=== PATIENT | female | born 1965 | race Caucasian/White ===

== ENCOUNTER 2016-09-11 13:16 | Emergency (ER) | payer OTHER ==
[2016-09-11] MEDS ORDERED: HYDROcodone/ACETAMIN 5-325 MG* 1 TAB PO ONE (15:50)
--- NOTE | 2016-09-11 15:52 | RAD ---
INDICATION: Right knee injury. COMPARISON: Comparison is made with a prior study from October 19, 2015. TECHNIQUE: 4 views of the right knee were obtained. FINDINGS: There is mild lateral subluxation of the patella which is unchanged. No fracture or joint effusion is seen. There is moderate to severe osteoarthritic change in the patellofemoral compartment. IMPRESSION: NO EVIDENCE FOR FRACTURE.
--- NOTE | 2016-09-11 16:11 | UC ---
Knee Pain HPI - HPI Summary HPI Summary: worsening right knee pain---has had similar in the past with conservative treatment - History of Current Complaint Chief Complaint: UCLowerExtremity Stated Complaint: KNEE PAIN Time Seen by Provider: 09/11/16 14:15 Hx Obtained From: Patient ?: No Onset/Duration: Gradual Onset, Lasting Weeks, Worse Since - past 2 days Severity Initially: Severe Severity Currently: Severe Pain Intensity: 10 Pain Scale Used: 0-10 Numeric Character: Aching, Throbbing Aggravating Factor(s): Movement, Weight Bearing Alleviating Factor(s): Rest Associated Signs And Symptoms: Positive: Swelling Able to Bear Weight: Yes - with pain-- - Allergies/Home Medications Allergies/Adverse Reactions: Allergies Allergy/AdvReac Type Severity Reaction Status Date / Time Codeine AdvReac Severe Shakes Verified 10/28/15 10:37 PMH/Surg Hx/FS Hx/Imm Hx Previously Healthy: No Endocrine History Of: Denies: Diabetes, Thyroid Disease Cardiovascular History Of: Denies: Cardiac Disorders, Hypertension, Pacemaker/ICD, Myocardial Infarction , Congestive Heart Failure, Deep Vein Thrombosis Respiratory History Of: Reports: COPD, Asthma - W/INHALER, Pneumonia GI/ History Of: Denies: Ulcer, Renal Disease Neurological History Of: Reports: Seizures - past couple months, has not seen an MD about it yet, at least once per week Psychological History Of: Reports: Anxiety, Depression Denies: Bipolar Disorder, Schizophrenia - Surgical History Surgical History: Yes Surgery Procedure, Year, and Place: hysterectomy; appendectomy; L knee-IN 30'S ARTHROSCOPY IN [place]. BLADDER SLING. angioplasty - NO STENTS - Family History Known Family History: Positive: Unknown - Social History Occupation: Employed Full-time Lives: With Family Alcohol Use: None Substance Use Type: None Smoking Status (MU): Heavy Every Day Tobacco Smoker Type: Cigarettes Amount Used/How Often: 1/4 ppd Length of Time of Smoking/Using Tobacco: 20 yrs Have You Smoked in the Last Year: Yes Household Exposure Type: Cigarettes Cessation Counseling: Counseled 3+Min - 10 Min - Immunization History Most Recent Influenza Vaccination: fall 2012 Most Recent Tetanus Shot: july 2013 Most Recent Pneumonia Vaccination: 2013 Review of Systems Constitutional: Negative Skin: Negative Eyes: Negative ENT: Negative Respiratory: Negative Cardiovascular: Negative Gastrointestinal: Negative Genitourinary: Negative Motor: Decreased ROM - right knee Neurovascular: Negative Musculoskeletal: Arthralgia - right knee Neurological: Negative Psychological: Negative All Other Systems Reviewed And Are Negative: Yes Physical Exam Triage Information Reviewed: Yes Appearance: Well-Appearing, Pain Distress, Obese Vital Signs: Initial Vital Signs Temp 97.7 F 09/11/16 14:42 Pulse 60 09/11/16 14:42 Resp 18 09/11/16 14:42 BP 133/66 09/11/16 14:42 Pulse Ox 98 09/11/16 14:42 Vital Signs Reviewed: Yes Eye Exam: Normal Eyes: Positive: Conjunctiva Clear ENT Exam: Normal ENT: Positive: Normal ENT inspection, Hearing grossly normal, TMs normal. Negative: Nasal congestion, Nasal drainage, Trismus, Muffled/hoarse voice Dental Exam: Normal Neck exam: Normal Neck: Positive: Supple, Nontender, No Lymphadenopathy Respiratory Exam: Normal Respiratory: Positive: Chest non-tender, Lungs clear, Normal breath sounds, No respiratory distress, No accessory muscle use Cardiovascular Exam: Normal Cardiovascular: Positive: RRR, No Murmur, Pulses Normal, Brisk Capillary Refill Musculoskeletal Exam: Other Musculoskeletal: Positive: Strength Limited @ - right knee, ROM Limited @ - knee (R), Edema @ - R knee Neurological Exam: Normal Neurological: Positive: Alert, Muscle Tone Normal Psychological Exam: Normal Skin Exam: Normal Diagnostics - Radiology No standard instances Xray Interpretation: Positive (See Comments) - sublex Patella, moderate to sever degenerative changes Radiology Interpretation Completed By: Radiologist Knee Pain Course/Dx - Course Course Of Treatment: knee immoblizer, pain control, work limits, follow with ortho - Differential Dx/Diagnosis Differential Diagnosis/HQI/PQRI: Contusion, Dislocation, Internal Derangement Of Knee, Sprain, Strain Provider Diagnoses: Acute on Chronic right knee pain, nicotine dependent Discharge - Discharge Plan Condition: Stable Disposition: HOME Prescriptions: HYDROcodone/ACETAMIN 5-325 MG* [Empire 5-325 TAB*] 1 - 2 tab PO Q6H PRN #24 tab MDD 8 PRN Reason: Pain Meloxicam [Mobic] 7.5 mg PO BID #60 tab Patient Education Materials: Knee Immobilizer (ED), Knee Pain (ED) Forms: *Work Release Referrals: No Primary Care Phys,NOPCP [Primary Care Provider] - Poncho Haines MD [Medical Doctor] - 4 Days
[2016-09-11 16:23] VITALS: BP 167/96
== END 2016-09-11 16:15 | disposition home or self-care (01) ==
LOC: UCEAST 13:16
DX: M25.561 Pain in right knee (principal); G89.29 Other chronic pain; J45.909 Unspecified asthma, uncomplicated; R56.9 Unspecified convulsions; F41.9 Anxiety disorder, unspecified; F32.9 Major depressive disorder, single episode, unspecified; F17.210 Nicotine dependence, cigarettes, uncomplicated; Z88.5 Allergy status to narcotic agent
CPT/HCPCS: 99213; G0463

== ENCOUNTER 2017-02-11 14:51 | Emergency (ER) | payer OTHER ==
[2017-02-11] MEDS ORDERED: NS 0.9% 1000 ML* 1,000 ML IV ONE (16:00)
[2017-02-11] MEDS ORDERED: Ondansetron INJ* 2 MG/ML VIAL IV ONE ×2 (16:00→16:32)
[2017-02-11] MEDS ORDERED: HYDROmorphone INJ* 1 MG/ML CARPUJECT SYRINGE IV ONE ×2 (16:00→16:32)
[2017-02-11] MEDS ORDERED: Ondansetron INJ* 2 MG/ML VIAL ONE (16:02)
[2017-02-11] MEDS ORDERED: HYDROmorphone INJ* 1 MG/ML CARPUJECT SYRINGE ONE (16:02)
[2017-02-11 16:19] LABS: Hematocrit 41 % (35-47); Hemoglobin 13.9 g/dl (12.0-16.0); Mean Corpuscular HGB Conc 34 g/dl (31-36); Mean Corpuscular Hemoglobin 31 pg (27-31); Mean Corpuscular Volume 93 fL (80-97); Mean Platelet Volume 8 um3 (7.4-10.4); Red Blood Count 4.43 10^6/ul (4.0-5.4); Red Cell Distribution Width 14 % (10.5-15); White Blood Count 17.7 10^3/ul (3.5-10.8)
--- NOTE | 2017-02-11 16:25 | RAD ---
INDICATION: LEFT lower quadrant abdominal pain; chills; possible fever. Post appendectomy, hysterectomy, urinary bladder sling. COMPARISON: December 26, 2010 CT TECHNIQUE: Multidetector CT images were obtained from the lung bases to the ischial tuberosities. Evaluation of the viscera is limited without IV contrast. Multiplanar reformation. REPORT: Unremarkable visualized inferior thorax. Upper normal size liver with diffuse decreased density consistent with fatty infiltration with focal sparing at the gallbladder fossa. No focal hepatic lesion or biliary dilatation. No CT abnormality of the gallbladder, pancreas, spleen. Negative for CT abnormality of the upper GI or small bowel. The appendix is not visualized consistent with surgical history. Unremarkable colon. Negative for ascites or free air. Negative for significant hernias. Normal RIGHT adrenal gland. Unchanged 2.5 cm hypodense LEFT adrenal nodule consistent with a benign lipid rich adenoma. 2.1 cm exophytic cortical lesion at the upper pole of the LEFT kidney increased from 1.2 cm previously is denser than typical for a simple cyst. Negative for nephrolithiasis or hydronephrosis. Unremarkable nondilated ureters and largely decompressed urinary bladder limiting assessment. Post hysterectomy. Adnexal region surgical clips. No suspicious adnexal region lesions evident. Negative for lymphadenopathy. Normal diameter abdominal aorta and common iliac arteries. Physiologic distention of the IVC. Chronic appearing malalignment at the sacrococcygeal and S1-S2 junctions. No suspicious focal osseous lesions evident. IMPRESSION: 1. Fatty infiltration of the liver. 2. No pathologic process of the alimentary tract evident. 3. Negative for obstructive uropathy. 4. Indeterminate 2.1 cm exophytic cortical lesion upper pole LEFT kidney. Nonemergent follow-up renal ultrasound suggested to differentiate between a hyperdense cyst and a solid lesion. 5. Benign lipid rich LEFT adrenal adenoma.
[2017-02-11 16:34] LABS: Albumin 4.3 g/dL (3.2-5.2); BUN/Creatinine Ratio 13.6 (8-20); C Reactive Protein 10.38 mg/L (< 5.00); Calcium 9.3 mg/dL (8.6-10.3); EGFR African American 121.4 (>60); EGFR Non-African American 94.4 (>60); Globulin 3.3 g/dL (2-4); Potassium 3.7 mmol/L (3.5-5.0); Total Bilirubin 0.4 mg/dL (0.2-1.0); Total Protein 7.6 g/dL (6.4-8.9)
[2017-02-11 19:43] LABS: Urine Bilirubin Negative (Negative); Urine Glucose Negative (Negative); Urine Nitrite Negative (Negative)
[2017-02-11] MEDS ORDERED: oxyCODONE/Acetamin 5/325 MG* TAB PO ONE (20:31)
[2017-02-11 21:00] VITALS: BP 147/69
--- NOTE | 2017-02-11 22:09 | ED ---
Karan Diallo Alfonso, scribed for Jarek Rapp MD on 02/11/17 at 1546 . Abdominal Pain/Female - HPI Summary HPI Summary: This patient is a 51 year old F presenting to [facility] with a chief complaint of LLQ abdominal pain since a few months ago, worse and constant since a few days ago. The pain began as cramping and is now sharp. The patient rates the pain 9/ 10 in severity. Symptoms aggravated by sitting. Symptoms alleviated by nothing. Patient reports fever, and chills. Patient denies bowel symptoms, and loss of appetite. - History of Current Complaint Chief Complaint: EDAbdPain Stated Complaint: LT LOWER ABD PAIN Time Seen by Provider: 02/11/17 15:30 Hx Obtained From: Patient Onset/Duration: Gradual Onset, Worse Since - a few days ago, Other - Lasting months Timing: Constant Severity Currently: Severe Pain Intensity: 9 Pain Scale Used: 0-10 Numeric Location: Discrete At: LLQ Radiates to: LLQ Character: Sharp, Cramping Aggravating Factor(s): Other: - Sitting Alleviating Factor(s): Nothing Associated Signs and Symptoms: Positive: Other: - fever, and chills. Patient denies bowel symptoms, and loss of appetite. Allergies/Adverse Reactions: Allergies Allergy/AdvReac Type Severity Reaction Status Date / Time Codeine AdvReac Severe Shakes Verified 09/16/16 11:01 PMH/Surg Hx/FS Hx/Imm Hx Endocrine/Hematology History: Denies: Hx Diabetes, Hx Thyroid Disease, Hx Anemia, Hx Unexplained Bleeding Cardiovascular History: Reports: Hx Angina, Hx Angioplasty, Hx Syncope Denies: Hx Aneurysm, Hx Auto Implanted Cardiovert Defib, Hx Cardiac Arrest, Hx Cardiomegaly, Hx Congenital Heart Disease, Hx Congestive Heart Failure, Hx Coronary Artery Disease, Hx Deep Vein Thrombosis, Hx Embolism, Hx Hypercholesterolemia, Hx Hypotension, Hx Hypertension, Hx Myocardial Infarction , Hx Pacemaker/ICD, Hx Peripheral Vascular Disease, Hx Rheumatic Fever, Hx Valvular Heart Disease, Other Cardiovascular Problems/Disorders Respiratory History: Reports: Hx Asthma - W/INHALER, Hx Chronic Obstructive Pulmonary Disease (COPD), Hx Pneumonia, Hx Seasonal Allergies, Hx Sleep Apnea, Other Respiratory Problems/Disorders - SUDDEN ONSET SOB IN [place] W/ LEFT LOWER LEG SWELLING/BRUSING GI History: Reports: Hx Gastroesophageal Reflux Disease, Hx Irritable Bowel Denies: Hx Ulcer History: Reports: Other Problems/Disorders - Bladder Sling Denies: Hx Renal Disease Musculoskeletal History: Reports: Hx Arthritis, Hx Back Problems, Hx Orthopedic Injury, Hx Osteoporosis Sensory History: Denies: Hx Hearing Aid Neurological History: Reports: Hx Headaches - accompany seizures, Hx Seizures - past couple months, has not seen an MD about it yet, at least once per week Psychiatric History: Reports: Hx Anxiety, Hx Depression Denies: Hx Attention Deficit Hyperactivity Disorder, Hx Eating Disorder, Hx Panic Disorder, Hx Post Traumatic Stress Disorder, Hx Inpatient Treatment, Hx Community Mental Health Tx, Hx Schizophrenia, Hx Bipolar Disorder, Hx Suicide Attempt, Hx of Violent Episodes Against Others, Hx Substance Abuse - Cancer History Cancer Type, Location and Year: SKIN CARCINOMA REMOVED FROM ABDOMIN - Surgical History Surgery Procedure, Year, and Place: hysterectomy; appendectomy; L knee-IN 'S ARTHROSCOPY IN [place]. BLADDER SLING. angioplasty - NO STENTS - Immunization History Date of Tetanus Vaccine: unknown Infectious Disease History: No Infectious Disease History: Denies: Hx Clostridium Difficile, Hx Hepatitis, Hx Human Immunodeficiency Virus (HIV), Hx of Known/Suspected MRSA, Hx Shingles, Hx Tuberculosis, Hx Known/ Suspected VRE, Hx Known/Suspected VRSA, History Other Infectious Disease, Traveled Outside the [place] in Last 30 Days - Family History Known Family History: Positive: Cardiac Disease, Diabetes - Social History Alcohol Use: None Substance Use Type: Reports: None Hx Tobacco Use: Yes Smoking Status (MU): Heavy Every Day Tobacco Smoker Type: Cigarettes Amount Used/How Often: 1/4 ppd Length of Time of Smoking/Using Tobacco: 20 yrs Have You Smoked in the Last Year: Yes Review of Systems Positive: Fever, Chills Positive: Abdominal Pain, Other - Negative bowel symptoms and loss of appetite. All Other Systems Reviewed And Are Negative: Yes Physical Exam Triage Information Reviewed: Yes Vital Signs On Initial Exam: Initial Vitals Temp Pulse Resp BP Pulse Ox 98.9 F 81 20 170/85 96 02/11/17 14:53 02/11/17 14:53 02/11/17 14:53 02/11/17 14:53 02/11/17 14:53 Vital Signs Reviewed: Yes Appearance: Positive: Well-Appearing, Pain Distress - Moderate, Obese Skin: Positive: Warm, Skin Color Reflects Adequate Perfusion, Dry Head/Face: Positive: Normal Head/Face Inspection Eyes: Positive: Normal ENT: Positive: Normal ENT inspection Neck: Positive: Supple, Nontender Respiratory/Lung Sounds: Positive: Clear to Auscultation, Breath Sounds Present Cardiovascular: Positive: RRR Abdomen Description: Positive: Soft, Other: - LLQ tenderness.. Negative: Hernia @ Bowel Sounds: Positive: Present Pelvic Exam: Positive: other - Witnessed by female RN. No bladder prolapse noted. Musculoskeletal: Positive: Normal Neurological: Positive: Normal, Sensory/Motor Intact, Alert, Oriented to Person Place, Time, CN Intact II-III Psychiatric: Positive: Normal, Affect/Mood Appropriate Diagnostics - Vital Signs Vital Signs Temp Pulse Resp BP Pulse Ox 02/11/17 14:53 98.9 F 81 20 170/85 96 - Laboratory Lab Results: Lab Results 02/11/17 02/11/17 02/11/17 Range/Units 15:56 15:56 15:56 WBC 17.7 H (3.5-10.8) 10^3/ul RBC 4.43 (4.0-5.4) 10^6/ul Hgb 13.9 (12.0-16.0) g/dl Hct 41 (35-47) % MCV 93 (80-97) fL MCH 31 (27-31) pg MCHC 34 (31-36) g/dl RDW 14 (10.5-15) % Plt Count 391 (150-450) 10^3/ul MPV 8 (7.4-10.4) um3 Neut % (Auto) 70.3 (38-83) % Lymph % (Auto) 20.5 L (25-47) % Cocke % (Auto) 8.2 (1-9) % Eos % (Auto) 0.2 (0-6) % Baso % (Auto) 0.8 (0-2) % Absolute Neuts (auto) 12.5 H (1.5-7.7) 10^3/ul Absolute Lymphs (auto) 3.6 (1.0-4.8) 10^3/ul Absolute Monos (auto) 1.5 H (0-0.8) 10^3/ul Absolute Eos (auto) 0 (0-0.6) 10^3/ul Absolute Basos (auto) 0.1 (0-0.2) 10^3/ul Absolute Nucleated RBC 0.02 10^3/ul Nucleated RBC % 0.1 Sodium 133 (133-145) mmol/L Potassium 3.7 (3.5-5.0) mmol/L Chloride 103 (101-111) mmol/L Carbon Dioxide 23 (22-32) mmol/L Anion Gap 7 (2-11) mmol/L BUN 9 (6-24) mg/dL Creatinine 0.66 (0.51-0.95) mg/dL Est GFR ( Amer) 121.4 (>60) Est GFR (Non-Af Amer) 94.4 (>60) BUN/Creatinine Ratio 13.6 (8-20) Glucose 100 (70-100) mg/dL Lactic Acid 1.4 (0.5-2.0) mmol/L Calcium 9.3 (8.6-10.3) mg/dL Total Bilirubin 0.40 (0.2-1.0) mg/dL AST 19 (13-39) U/L ALT 24 (7-52) U/L Alkaline Phosphatase 79 (34-104) U/L C-Reactive Protein 10.38 H (< 5.00) mg/L Total Protein 7.6 (6.4-8.9) g/dL Albumin 4.3 (3.2-5.2) g/dL Globulin 3.3 (2-4) g/dL Albumin/Globulin Ratio 1.3 (1-3) Lipase 15 (11.0-82.0) U/L Urine Color Urine Appearance Urine pH (5-9) Ur Specific Sabael (1.010-1.030) Urine Protein (Negative) Urine Ketones (Negative) Urine Blood (Negative) Urine Nitrate (Negative) Urine Bilirubin (Negative) Urine Urobilinogen (Negative) Ur Leukocyte Esterase (Negative) Urine Glucose (Negative) 02/11/17 Range/Units 19:05 WBC (3.5-10.8) 10^3/ul RBC (4.0-5.4) 10^6/ul Hgb (12.0-16.0) g/dl Hct (35-47) % MCV (80-97) fL MCH (27-31) pg MCHC (31-36) g/dl RDW (10.5-15) % Plt Count (150-450) 10^3/ul MPV (7.4-10.4) um3 Neut % (Auto) (38-83) % Lymph % (Auto) (25-47) % Cocke % (Auto) (1-9) % Eos % (Auto) (0-6) % Baso % (Auto) (0-2) % Absolute Neuts (auto) (1.5-7.7) 10^3/ul Absolute Lymphs (auto) (1.0-4.8) 10^3/ul Absolute Monos (auto) (0-0.8) 10^3/ul Absolute Eos (auto) (0-0.6) 10^3/ul Absolute Basos (auto) (0-0.2) 10^3/ul Absolute Nucleated RBC 10^3/ul Nucleated RBC % Sodium (133-145) mmol/L Potassium (3.5-5.0) mmol/L Chloride (101-111) mmol/L Carbon Dioxide (22-32) mmol/L Anion Gap (2-11) mmol/L BUN (6-24) mg/dL Creatinine (0.51-0.95) mg/dL Est GFR ( Amer) (>60) Est GFR (Non-Af Amer) (>60) BUN/Creatinine Ratio (8-20) Glucose (70-100) mg/dL Lactic Acid (0.5-2.0) mmol/L Calcium (8.6-10.3) mg/dL Total Bilirubin (0.2-1.0) mg/dL AST (13-39) U/L ALT (7-52) U/L Alkaline Phosphatase (34-104) U/L C-Reactive Protein (< 5.00) mg/L Total Protein (6.4-8.9) g/dL Albumin (3.2-5.2) g/dL Globulin (2-4) g/dL Albumin/Globulin Ratio (1-3) Lipase (11.0-82.0) U/L Urine Color Yellow Urine Appearance Cloudy Urine pH 5.0 (5-9) Ur Specific Sabael 1.019 (1.010-1.030) Urine Protein Negative (Negative) Urine Ketones Negative (Negative) Urine Blood Negative (Negative) Urine Nitrate Negative (Negative) Urine Bilirubin Negative (Negative) Urine Urobilinogen Negative (Negative) Ur Leukocyte Esterase Negative (Negative) Urine Glucose Negative (Negative) Result Diagrams: 02/11/17 15:56 02/11/17 15:56 Lab Statement: Any lab studies that have been ordered have been reviewed, and results considered in the medical decision making process. - CT A/P CT Interpretation Completed By: Radiologist - 1. Fatty infiltration of the liver. 2. No pathologic process of the alimentary tract evident. 3. Negative for obstructive uropathy. 4. Indeterminate 2.1 cm exophytic cortical lesion upper pole LEFT kidney. Nonemergent follow-up renal ultrasound suggested to differentiate between a hyperdense cyst and a solid lesion. 5. Benign lipid rich LEFT adrenal adenoma. ED physician has reviewed this radiology report and agrees. Abdominal Pain Fem Course/Dx - Course Course Of Treatment: Ms. Acevedo presented with a LLQ pain that she has had for months but has worsened in the past few days. She saw her PMD who may have reduced a bladder prolapse in the office. She had no evidence of bladder prolapse on arrival or hernia but did have LLQ tenderness. Hew WBCs were elevated at [address] showed no acute pathology. She does have some chronic malalignment of her SI joint on that side and that may be causing pain. I will treat her with pain medications and recommend close F/U. - Diagnoses Provider Diagnoses: Abdominal pain Discharge - Discharge Plan Condition: Stable Disposition: HOME Prescriptions: oxyCODONE/Acetamin 5/325 MG* [Percocet 5/325 TAB*] 1 tab PO Q6H PRN #20 tab MDD 4 PRN Reason: Pain Patient Education Materials: Abdominal Pain (ED) Referrals: Timmy HERNANDEZ FLOOR WORKERLizette [Primary Care Provider] - 3 Days Additional Instructions: RETURN TO THE EMERGENCY DEPARTMENT FOR CHANGING OR WORSENING SYMPTOMS. The documentation as recorded by the Karan babin Alfonso accurately reflects the service I personally performed and the decisions made by me, Jarek Rapp MD.
== END 2017-02-11 21:05 | disposition home or self-care (01) ==
LOC: ED 14:51
DX: R10.32 Left lower quadrant pain (principal)
CPT/HCPCS: 36415; 74176; 80053; 81003; 83605; 83690; 85025; 86140; 96374; 96375; 99285; A9270-GY; J1170; J2405

== ENCOUNTER 2017-11-14 09:29 | Emergency (ER) | payer OTHER ==
[2017-11-14] MEDS ORDERED: NS 0.9% 1000 ML* 1,000 ML IV ONE (09:40)
[2017-11-14] MEDS ORDERED: Albuterol/Ipratropium NEB.SOL* Albuterol 2.5 MG/Ipratropium 0.5 MG 3 ML INH ONE (09:41)
[2017-11-14 09:58] LABS: ABS Basophils 0.1 10^3/ul (0-0.2); ABS Eosinophils 0.3 10^3/ul (0-0.6); ABS Lymphocytes 2.6 10^3/ul (1.0-4.8); ABS Neutrophils 10.3 10^3/ul (1.5-7.7); ABS Nucleated RBC 0 10^3/ul; Eosinophil % 2.4 % (0-6); Hematocrit 40 % (35-47); Hemoglobin 13.7 g/dl (12.0-16.0); Lymphocyte % 18.3 % (25-47); Mean Corpuscular HGB Conc 34 g/dl (31-36); Mean Corpuscular Hemoglobin 31 pg (27-31); Mean Corpuscular Volume 90 fL (80-97); Mean Platelet Volume 7.5 um3 (7.4-10.4); Nucleated Red Blood Cells % 0; Platelet Count 398 10^3/ul (150-450); Red Blood Count 4.47 10^6/ul (4.00-5.40); Red Cell Distribution Width 16 % (10.5-15); White Blood Count 14.4 10^3/ul (3.5-10.8)
[2017-11-14 10:10] LABS: INR 0.9 (0.77-1.02)
[2017-11-14 10:24] LABS: EGFR Non-African American 85.1 (>60)
[2017-11-14] MEDS ORDERED: predniSONE TAB* 20 MG PO ONE (11:00)
--- NOTE | 2017-11-14 11:23 | RAD ---
INDICATION: Chest pain, cough. COPD. History of tobacco use. COMPARISON: February 11, 2017 CT abdomen and October 15, 2014 chest radiograph. TECHNIQUE: Dual energy PA and routine lateral views of the chest were obtained. REPORT: Mild prominence of the interstitial markings. Mild patchy rarefaction of upper lung zone interstitial markings. No focal pulmonary lesion, compelling alveolar consolidation, pleural effusion, pneumothorax. The heart, pulmonary vasculature, and mediastinal contours are unremarkable. IMPRESSION: #. No evidence for pulmonary edema. No evidence for acute intrathoracic disease. #. Stigmata of COPD.
[2017-11-14] MEDS ORDERED: Levofloxacin TAB* 250 MG PO ONE (11:44)
--- NOTE | 2017-11-14 11:58 | ED ---
HPI Chest Pain - HPI Summary HPI Summary: This is Bee Krishna, documenting for attending Pb Farrell MD. Pt is a 52 y/o F BIBA to ED for chest pain. She describes the pain as constant and rates it a 6/10 in severity. She woke up this morning not feeling right. Her chest felt heavy like something was sitting on her and she had shoulder pain. Notes SOB, wheezing, swollen ankles. EMS gave her 3 NTG and 1 baby aspirin. Had a normal EKG on walk in. Pt was crying and had a slight tremor from feeling anxious about being in ED. Pt is a smoker and smokes half a pack per day. PMHx of COPD and anxiety. - History of Current Complaint Chief Complaint: EDChestWallPain Time Seen by Provider: 11/14/17 09:31 Hx Obtained From: Patient Onset/Duration: Started Hours Ago Timing: Constant Current Severity: Moderate - 6/10 Pain Intensity: 6 Pain Scale Used: 0-10 Numeric Chest Pain Radiates: Yes Chest Pain Radiates To:: Shoulder Character: Heaviness Associated Signs and Symptoms: Positive: Chest Pain, Shortness of Breath - Allergy/Home Medications Allergies/Adverse Reactions: Allergies Allergy/AdvReac Type Severity Reaction Status Date / Time codeine Allergy Hives Verified 11/14/17 09:32 PMH/Surg Hx/FS Hx/Imm Hx Endocrine/Hematology History: Denies: Hx Diabetes, Hx Thyroid Disease, Hx Anemia, Hx Unexplained Bleeding Cardiovascular History: Reports: Hx Angina, Hx Angioplasty, Hx Syncope Denies: Hx Aneurysm, Hx Auto Implanted Cardiovert Defib, Hx Cardiac Arrest, Hx Cardiomegaly, Hx Congenital Heart Disease, Hx Congestive Heart Failure, Hx Coronary Artery Disease, Hx Deep Vein Thrombosis, Hx Embolism, Hx Hypercholesterolemia, Hx Hypotension, Hx Hypertension, Hx Myocardial Infarction , Hx Pacemaker/ICD, Hx Peripheral Vascular Disease, Hx Rheumatic Fever, Hx Valvular Heart Disease, Other Cardiovascular Problems/Disorders Respiratory History: Reports: Hx Asthma - W/INHALER, Hx Chronic Obstructive Pulmonary Disease (COPD), Hx Pneumonia, Hx Seasonal Allergies, Hx Sleep Apnea, Other Respiratory Problems/Disorders - SUDDEN ONSET SOB IN [place] W/ LEFT LOWER LEG SWELLING/BRUSING GI History: Reports: Hx Gastroesophageal Reflux Disease, Hx Irritable Bowel Denies: Hx Ulcer History: Reports: Other Problems/Disorders - Bladder Sling Denies: Hx Renal Disease Musculoskeletal History: Reports: Hx Arthritis, Hx Back Problems, Hx Orthopedic Injury, Hx Osteoporosis Sensory History: Denies: Hx Hearing Aid Neurological History: Reports: Hx Headaches - accompany seizures, Hx Seizures - past couple months, has not seen an MD about it yet, at least once per week Psychiatric History: Reports: Hx Anxiety, Hx Depression Denies: Hx Attention Deficit Hyperactivity Disorder, Hx Eating Disorder, Hx Panic Disorder, Hx Post Traumatic Stress Disorder, Hx Inpatient Treatment, Hx Community Mental Health Tx, Hx Schizophrenia, Hx Bipolar Disorder, Hx Suicide Attempt, Hx of Violent Episodes Against Others, Hx Substance Abuse - Cancer History Cancer Type, Location and Year: SKIN CARCINOMA REMOVED FROM ABDOMIN - Surgical History Surgery Procedure, Year, and Place: hysterectomy; appendectomy; L knee-IN 'S ARTHROSCOPY IN [place] BLADDER [place]. angioplasty - NO STENTS - Immunization History Date of Tetanus Vaccine: unknown Infectious Disease History: No Infectious Disease History: Denies: Hx Clostridium Difficile, Hx Hepatitis, Hx Human Immunodeficiency Virus (HIV), Hx of Known/Suspected MRSA, Hx Shingles, Hx Tuberculosis, Hx Known/ Suspected VRE, Hx Known/Suspected VRSA, History Other Infectious Disease, Traveled Outside the [place] in Last 30 Days - Family History Known Family History: Positive: Cardiac Disease, Diabetes - Social History Alcohol Use: None Substance Use Type: Reports: None Hx Tobacco Use: Yes Smoking Status (MU): Heavy Every Day Tobacco Smoker Type: Cigarettes Amount Used/How Often: 1/4 ppd Length of Time of Smoking/Using Tobacco: 20 yrs Have You Smoked in the Last Year: Yes Review of Systems Positive: Chest Pain, Other - Swollen Ankles Positive: Shortness Of Breath, Other - Wheezing Positive: Anxious All Other Systems Reviewed And Are Negative: Yes Physical Exam - Summary Physical Exam Summary: Appearance: Well appearing, no pain distress Skin: warm, dry, reflects adequate perfusion Head/face: normal Eyes: EOMI, LISY ENT: normal Neck: supple, non-tender Respiratory: mild expiratory wheezes, decreased breath sound globally, fine crackles in left base Cardiovascular: RRR, no murmurs, pulses symmetrical, no lower extremity edema Abdomen: non-tender, soft Bowel Sounds: present Musculoskeletal: normal, strength/ROM intact Neuro: normal, sensory motor intact, A&Ox3 Psych: anxiety Triage Information Reviewed: Yes Vital Signs On Initial Exam: Initial Vitals Temp Pulse Resp BP Pulse Ox 98.1 F 81 16 131/72 99 11/14/17 09:33 11/14/17 09:33 11/14/17 09:33 11/14/17 09:33 11/14/17 09:33 Vital Signs Reviewed: Yes Diagnostics - Vital Signs Vital Signs Temp Pulse Resp BP Pulse Ox 11/14/17 11:00 73 95 11/14/17 10:16 75 15 158/109 96 11/14/17 10:00 69 20 100 11/14/17 09:53 70 18 99 11/14/17 09:46 72 16 166/75 98 11/14/17 09:45 71 18 97 11/14/17 09:43 98.1 F 68 16 175/101 95 11/14/17 09:42 74 21 175/101 97 11/14/17 09:33 98.1 F 81 16 131/72 99 - Laboratory Lab Results: Lab Results 11/14/17 11/14/17 11/14/17 Range/Units 09:47 09:47 09:47 WBC 14.4 H (3.5-10.8) 10^3/ul RBC 4.47 (4.00-5.40) 10^6/ul Hgb 13.7 (12.0-16.0) g/dl Hct 40 (35-47) % MCV 90 (80-97) fL MCH 31 (27-31) pg MCHC 34 (31-36) g/dl RDW 16 H (10.5-15) % Plt Count 398 (150-450) 10^3/ul MPV 7.5 (7.4-10.4) um3 Neut % (Auto) 71.5 (38-83) % Lymph % (Auto) 18.3 L (25-47) % Edgar % (Auto) 7.0 (0-7) % Eos % (Auto) 2.4 (0-6) % Baso % (Auto) 0.8 (0-2) % Absolute Neuts (auto) 10.3 H (1.5-7.7) 10^3/ul Absolute Lymphs (auto) 2.6 (1.0-4.8) 10^3/ul Absolute Monos (auto) 1.0 H (0-0.8) 10^3/ul Absolute Eos (auto) 0.3 (0-0.6) 10^3/ul Absolute Basos (auto) 0.1 (0-0.2) 10^3/ul Absolute Nucleated RBC 0 10^3/ul Nucleated RBC % 0 INR (Anticoag Therapy) (0.77-1.02) Sodium 136 (135-145) mmol/L Potassium 4.3 (3.5-5.0) mmol/L Chloride 106 (101-111) mmol/L Carbon Dioxide 24 (22-32) mmol/L Anion Gap 6 (2-11) mmol/L BUN 18 (6-24) mg/dL Creatinine 0.72 (0.51-0.95) mg/dL Est GFR ( Amer) 102.9 (>60) Est GFR (Non-Af Amer) 85.1 (>60) BUN/Creatinine Ratio 25.0 H (8-20) Glucose 120 H (70-100) mg/dL Lactic Acid 1.4 (0.5-2.0) mmol/L Calcium 9.5 (8.6-10.3) mg/dL Total Bilirubin 0.30 (0.2-1.0) mg/dL AST 16 (13-39) U/L ALT 20 (7-52) U/L Alkaline Phosphatase 118 H (34-104) U/L Troponin I 0.00 (<0.04) ng/mL B-Natriuretic Peptide ( - 100) pg/mL Total Protein 7.2 (6.4-8.9) g/dL Albumin 4.0 (3.2-5.2) g/dL Globulin 3.2 (2-4) g/dL Albumin/Globulin Ratio 1.3 (1-3) 11/14/17 11/14/17 Range/Units 09:47 09:47 WBC (3.5-10.8) 10^3/ul RBC (4.00-5.40) 10^6/ul Hgb (12.0-16.0) g/dl Hct (35-47) % MCV (80-97) fL MCH (27-31) pg MCHC (31-36) g/dl RDW (10.5-15) % Plt Count (150-450) 10^3/ul MPV (7.4-10.4) um3 Neut % (Auto) (38-83) % Lymph % (Auto) (25-47) % Edgar % (Auto) (0-7) % Eos % (Auto) (0-6) % Baso % (Auto) (0-2) % Absolute Neuts (auto) (1.5-7.7) 10^3/ul Absolute Lymphs (auto) (1.0-4.8) 10^3/ul Absolute Monos (auto) (0-0.8) 10^3/ul Absolute Eos (auto) (0-0.6) 10^3/ul Absolute Basos (auto) (0-0.2) 10^3/ul Absolute Nucleated RBC 10^3/ul Nucleated RBC % INR (Anticoag Therapy) 0.90 (0.77-1.02) Sodium (135-145) mmol/L Potassium (3.5-5.0) mmol/L Chloride (101-111) mmol/L Carbon Dioxide (22-32) mmol/L Anion Gap (2-11) mmol/L BUN (6-24) mg/dL Creatinine (0.51-0.95) mg/dL Est GFR ( Amer) (>60) Est GFR (Non-Af Amer) (>60) BUN/Creatinine Ratio (8-20) Glucose (70-100) mg/dL Lactic Acid (0.5-2.0) mmol/L Calcium (8.6-10.3) mg/dL Total Bilirubin (0.2-1.0) mg/dL AST (13-39) U/L ALT (7-52) U/L Alkaline Phosphatase (34-104) U/L Troponin I (<0.04) ng/mL B-Natriuretic Peptide 19 ( - 100) pg/mL Total Protein (6.4-8.9) g/dL Albumin (3.2-5.2) g/dL Globulin (2-4) g/dL Albumin/Globulin Ratio (1-3) Result Diagrams: 11/14/17 09:47 11/14/17 09:47 Lab Statement: Any lab studies that have been ordered have been reviewed, and results considered in the medical decision making process. - Radiology CXR Radiology Interpretation Completed By: Radiologist - 0941. No evidence for pulmonary edema. No evidence for acute intrathoracic disease. Stigmata of COPD. ED Physician reviewed this report. - EKG 0935 Cardiac Rate: NL - 71 bpm EKG Rhythm: Sinus Rhythm ST Segment: Normal EKG Interpretation: Normal axis, normal interval, baseline artifact due to tremor Chest Pain Course/Dx - Course Course Of Treatment: Patient with a history of COPD who presents with chest tightness and wheezing. Her EKG and troponin are negative. She was given aspirin, breathing treatments and loaded with steroids. Her x-rays were negative. Given her COPD she was started on antibiotic. She is feeling much better and discharged on home medications. She'll follow closely with her primary care physician. - Chest Pain Differential Diagnosis/HQI/PQRI: Acute [place], ACS, Angina, Chest Wall, GI Disease, Lower Respiratory Infection - Diagnoses Provider Diagnoses: COPD exacerbation, Atypical chest pain Discharge - Sign-Out/Discharge Documenting (check all that apply): Patient Departure - Discharge - Discharge Plan Condition: Improved Disposition: HOME Prescriptions: Levofloxacin TAB* [Levaquin TAB*] 750 mg PO DAILY #6 tab predniSONE TAB* [Deltasone TAB*] 50 mg PO DAILY #4 tab Patient Education Materials: COPD (Chronic Obstructive Pulmonary Disease) (ED) Forms: *Work Release Referrals: Pricila Parra [Primary Care Provider] - Additional Instructions: Use your inhalers every [address] [place] about getting the nebulizer machine. Call your doctor today to schedule follow up. Return with fever, difficulty breathing, worse, new symptoms or other concerns. - Billing Disposition and Condition Condition: IMPROVED Disposition: Home
[2017-11-14 12:14] VITALS: BP 138/78
== END 2017-11-14 12:13 | disposition home or self-care (01) ==
LOC: ED 09:29
DX: J44.1 Chronic obstructive pulmonary disease with (acute) exacerbation (principal); R07.89 Other chest pain; I48.91 Unspecified atrial fibrillation; I20.9 Angina pectoris, unspecified; R55 Syncope and collapse; K21.9 Gastro-esophageal reflux disease without esophagitis; R56.9 Unspecified convulsions; F41.9 Anxiety disorder, unspecified; F32.9 Major depressive disorder, single episode, unspecified; Z85.828 Personal history of other malignant neoplasm of skin; Z88.5 Allergy status to narcotic agent; Z82.49 Family history of ischemic heart disease and other diseases of the circulatory system; Z83.3 Family history of diabetes mellitus; F17.210 Nicotine dependence, cigarettes, uncomplicated
CPT/HCPCS: 36415; 71046; 80053; 83605; 83880; 84484; 85025; 85610; 93005; 96360; 99283; A9270-GY; J7512